=== PATIENT | female | born 1950 | race Caucasian/White ===

== ENCOUNTER 2019-04-24 08:50 | Day surgery (SDC) | payer BC ==
[~2019-04-24 08:50] MED LIST: BUPIVACAINE 0.5% PF 10 ML VIAL ONE; FENTANYL CITR 100 MCG/2 ML ONE; LIDOCAINE 1% MPF 2 ML AMPULE ONE; MIDAZOLAM HCL 2 MG/2 ML INJ ONE; ONDANSETRON 4 MG/2 ML VIAL ONE; PROPOFOL 200 MG/20 ML VIAL IV ONE
--- NOTE | 2019-04-24 08:51 | RAD REPORT ---
EXAM DESCRIPTION: Cristian Rodriguez (2 Views)04/24/2019 8:46 am CLINICAL HISTORY: Preop for hemorrhoid surgery COMPARISON: None FINDINGS: The lungs are mildly hyperaerated The lungs appear clear of acute infiltrate. The heart is normal size IMPRESSION: No acute abnormalities displayed
[2019-04-24 09:00] LABS: Eosinophils % 2.1 % (0-4.4); Hematocrit 44.1 % (36.0-45.0); Monocytes % 8.5 % (3.3-12.3); RBC Red Blood Cell Count 4.85 M/uL (3.86-4.86)
[2019-04-24] MEDS ORDERED: CEFOXITIN/SWI 1gm 1 GM/10 ML SYR ONE (09:17)
[2019-04-24] MEDS ORDERED: Ringers Lactate 1,000 ML IV ONE (09:17)
[2019-04-24] MEDS ORDERED: FENTANYL CITR 100 MCG/2 ML ONE (10:00)
[2019-04-24] MEDS ORDERED: HYDROCODONE/APAP 7.5/325 MG TAB ONE (12:11)
--- NOTE | 2019-04-24 15:05 | EKG ---
Test Date: 2019-04-24 Test Time: 08:29:21 Dough Puncher: FLAVIA MEASUREMENT RESULTS: Intervals: Rate: 64 SC: 162 QRSD: 90 QT: 412 QTc: 425 [place]: P: 53 SC: 162 QRS: 7 T: 24 INTERPRETIVE STATEMENTS: Normal sinus rhythm Normal ECG No previous ECG available for comparison Electronically Signed On 04-24-19 15:04:34 CDT by Marco Dawn
--- NOTE | 2019-04-24 18:45 | OP ---
Date of Procedure: 04/24/2019 Surgeon: Presley Larose MD Preoperative Diagnosis: Symptomatic hemorrhoids. Postoperative Diagnosis: Symptomatic hemorrhoids. Procedures: Exam under anesthesia, rigid proctoscopy, and hemorrhoidectomy. Estimated Blood Loss: Minimal. Specimen: Anterior midline hemorrhoid with internal and external component, complex in nature. Anesthesia: General. Complications: None. The patient tolerated the procedure in stable condition and taken to Recovery in good general conditi on. Procedure In Detail: The patient was brought to the OR and placed in supine position and general ane sthesia was begun. Patient was placed in the lithotomy position, prepped and draped in usual sterile fashion. Exam under anesthesia revealed a large complex internal and external hemorrhoid in the ant erior midline. No other evidence of disease identified. Rigid proctoscopy confirmed and then Ortiz ic scalpel utilized to excise the hemorrhoid and bleeding was controlled with cautery. Then, the rec martin pack consisting of Gelfoam, Surgicel, and Vaseline gauze placed in the anal canal. Marcaine 0.5% was infiltrated locally for postop pain control. Sterile dressing was applied. The patient was deborah kened and taken to Recovery in good general condition. Discharge Note: The patient will go to Day Surgery, then home when stable. Disposition: Home. Condition: Stable. Discharge Instructions: Resume home medications and diet. Activities as tolerated. No heavy liftin g. Remove outer dressing in a.m., sitz baths q.i.d., high-fiber diet, Metamucil 1 tablespoon p.o. t. i.d., Colace 100 mg p.o. q.12, Procto-HC 2.5% to anus b.i.d. and p.r.n., Tylenol No. 3 one tablet p.o . q.4 p.r.n. pain. Follow up in my office in 2 weeks, call for appointment. VAN/CHRISTOFER Voice ID: [id number] Report ID: [id number]
== END 2019-04-24 12:40 | disposition home or self-care (01) ==
LOC: OR 08:50
PROVIDERS: ATTEND Surgery
PROC: 06BY4ZC Excision of Hemorrhoidal Plexus, Percutaneous Endoscopic Approach (ICD-10-PCS; principal; 2019-04-24 09:00)
DX: K64.8 Other hemorrhoids (principal); K64.4 Residual hemorrhoidal skin tags
CPT/HCPCS: 36415; 71046; 80048; 85025; 88304; 93005; J2001; J2250; J2405; J2704; J3010